=== PATIENT | male | born 1980 | race Caucasian/White ===

== ENCOUNTER 2025-08-20 12:36 | Inpatient (IN) | payer MEDICAID, SELFPAY ==
[2025-08-20 12:37] VITALS: BP 136/89; PULSE 75; RESP 16; TEMP 36.7; O2SAT 98; BMI 30.1
--- NOTE | 2025-08-20 12:56 | EX.ED.SAOD ---
HPI History of Present Illness Chief Complaint: Substance Abuse Informant: patient Onset/Context/Timing Onset: Yesterday Context: Gradual Onset Timing: Continuous Worsened by: Nothing Relieved by: Nothing Associated Symptoms Associated Symptoms: Positive for palpatations; Negative for vomiting*, diarrhea*, fever*, rash*, seizure, tremor, change in mental status, suicidal ideation or homicidal ideation Narrative Narrative: Patient presents requesting detox from alcohol and methamphetamine. Patient states he drinks 14-15 beers per day. Patient states his last drink was yesterday. Patient states his last detox was 3 to 4 years ago. Patient also admits to using methamphetamines. Patient admits to occasional palpitations. Patient denies any nausea or vomiting. Patient denies any fevers or chills. Patient denies any suicidal homicidal ideations. Patient states he does have a history of schizophrenia and does hear voices. [facility] Medical History (Updated 08/20/25 @ 14:[address] Navneet Underwood DO) Schizoaffective disorder, bipolar type Home Medications ?Medication ?Instructions ?Recorded ?Last Taken ?Type hydroxyzine pamoate 25 mg capsule 50 mg PO Q8H PRN anxiety 08/20/25 08/18/25 History risperidone 125 mg/0.35 mL 125 mg subcut QMONTH mood 08/20/25 07/01/25 History subcutaneous extend release susp syringe (Uzedy) Allergy/AdvReac Type Severity Reaction Status Date / Time No Known Allergies Allergy Verified 08/20/25 12:40 Surgical History (Updated 08/20/25 @ 14:[address] Navneet Underwood DO) Hx of arthroscopy of right knee Social History (Updated 08/20/25 @ 14:[address] Navneet Underwood DO) Smoking Status: Heavy Smoker (>10/day) alcohol intake: current alcohol intake frequency: 3 or more drinks per day Alcohol type: beer substance use type: methamphetamine ROS ROS ED Constitutional Constitutional ED: Reports chills; Denies fever(s) Eyes Eyes: Denies blurry vision or change in vision ENT ENT ED: Denies rhinorrhea or sore throat Cardiovascular Cardiovascular: Reports palpitations; Denies chest pain Respiratory/Chest Respiratory/Chest: Denies cough or dyspnea Gastrointestinal Gastrointestinal: Denies nausea or vomiting Genitourinary Genitourinary ED: Denies dysuria or hematuria Musculoskeletal Musculoskeletal: Denies back pain or neck pain Integumentary Denies abscess or rash Neurologic Neurologic: Denies headache(s) or weakness Allergic/Immunologic Allergic/Immunologic ED: Denies mouth swelling or urticaria EXAM Physical Exam Const Vital Signs: 08/20/25 12:37 Temperature 98.1 F Temperature Source Temporal Pulse Rate 75 Respiratory Rate 16 Blood Pressure 136/89 H Blood Pressure Mean 104 Pulse Ox 98 Oxygen Delivery Method Room Air Positive well nourished and well developed General Appearance ED: well developed and NAD HEENT Reports moist mucous membranes Neck supple and no JVD Resp normal respiratory effort and clear to auscultation bilaterally Cardio regular rate and regular rhythm GI soft to palpation, non-tender and non-distended Neuro oriented x3, CN's II-XII intact bilaterally and no sensory deficits noted [place] Coma Scale: document GCS findings Spontaneous Obeys Commands Oriented 15 Sensorium / Orientation: alert Speech: speech normal Motor Exam: strength 5/5 throughout Psych mental status grossly normal MDM MDM MDM Narrative Medical decision making narrative: Medical screening labs will be obtained. CBC will be obtained to assess for leukocytosis and anemia. Comprehensive metabolic profile will be obtained to assess for hepatic function, renal function, and electrolyte abnormality. Serum alcohol level will be obtained to assess for alcohol intoxication. Urine drug screen will be obtained to assess for substance abuse. Lab Data Attestation: I reviewed the patient's lab results. Lab results narrative: CBC was reviewed and was essentially within normal limits. Comprehensive metabolic profile was reviewed. AST was slightly elevated at 65 and ALT was slightly elevated at 82. Glucose was normal at 102. The remainder is within normal limits. Serum alcohol level was reviewed and was less than 10.1. Urine drug screen was reviewed and was positive for amphetamines. Management Discussion w/another healthcare provider: kitchen and counter worker/Case management Treatment and Re-Evaluation Narrative: Patient was given a nicotine patch. kitchen and counter worker visited to evaluate the patient. She stated the patient was hearing voices which were getting worse. However, these voices were not telling him to harm himself or anyone else. She offered the patient placement in a dual diagnosis facility. Patient states he would prefer to stay here and do detox first. Case was discussed with the hospitalist. Discharge Plan Triage Chief Complaint: Substance Abuse ED Provider: Navneet Underwood Dx/Rx/DC Orders Clinical Impression: Alcohol withdrawal, Substance abuse, Schizoaffective disorder, bipolar type Prescriptions: No Action Uzedy 125 mg/0.35 mL suspension,extended rel syring 125 mg SUBCUT QMONTH Patient Comments: [NO ORIGINAL SIG] hydroxyzine pamoate 25 mg capsule 50 mg PO Q8H PRN (Reason: anxiety) Primary Care Provider: Care Physician,No Primary Print Language: Georgian
[2025-08-20 13:20] LABS: Hematocrit 46.3 % (40-54); Hemoglobin 15.6 g/dL (13.0-16.5); Immature Granulocytes Count 0.010 X10^3/uL (0.0-0.0); Mean Corp Hgb Conc 33.7 g/dL (32-36); Mean Corpuscular Volume 93.2 fL (80-94); Mean Platelet Vol. 9.2 fl (6.2-12.0); NRBC Flagged by Analyzer 0 % (0-5); Platelet Count 245 K/mm3 (150-450); RBC Distribution Width CV 13.6 % (11.6-14.6); RBC Distribution Width SD 46.7 fl (35.1-43.9); Red Blood Count 4.97 M/mm3 (4.6-6.2); White Blood Count 4.9 K/mm3 (4.4-11.0)
[2025-08-20] MEDS: Nicotine (PBKC) 21 MG Patch TD ×2 (13:24→15:44)
[2025-08-20 13:37] VITALS: BP 160/97; PULSE 69; RESP 14; O2SAT 98
[2025-08-20 13:40] LABS: AST(SGOT) 65 U/L (<=37); Alanine Aminotransfer ALT/SGPT 82 U/L (<=46); Albumin, Serum 4.5 g/dL (3.5-5.0); Alcohol, Blood (Medical)-Serum < 10.1 mg/dL (<=10.0); Alkaline Phosphatase 73 U/L (40-129); Anion Gap 11 (5-15); BUN 16 mg/dL (4-19); BUN/Creat Ratio 16.7 RATIO (10-20); Calcium,Total 9.1 mg/dL (7.6-11.0); Carbon Dioxide 24.2 mmol/L (21.0-32.0); Chloride 102 mmol/L (98-108); Estimated Creatinine Clearance 116.17 ml/min (50-250); Globulin 3.3 g/dL (2.2-4.2); Glucose 102 mg/dL (70-99); Potassium 4.3 mmol/L (3.3-5.1)
[2025-08-20 13:41] LABS: Barbiturate Urine NEGATIVE (< 200 ng/mL); Benzodiazepine Urine NEGATIVE (< 200 ng/mL); PCP Urine NEGATIVE (< 25 ng/mL); THC Urine NEGATIVE (< 50 ng/mL)
[2025-08-20 14:00] VITALS: BP 148/95; PULSE 77; RESP 16; O2SAT 97
--- NOTE | 2025-08-20 14:12 | HP.PCM.HOS_ITS ---
HPI - General General Date of Admission: 08/20/25 Date of Service: 08/20/25 Chief Complaint: EtOH detoxification HPI Narrative The patient is a 44 y/o M w/ PMHx: Schizoaffective disorder/bipolar type, Tobacco use, Polysubstance abuse (probably methamphetamine, snorting 1/2 g daily to every other day with last use 2 days prior), EtOH abuse who presents to the [facility] on 08/20/25 w/ noted acute EtOH withdrawal, although currently mild he onset starting on day of presentation following last EtOH intake the day prior typically drinking 12-30 beers a day with onset mild nausea, mild increased fatigue and restlessness and reporting also onset of mild tremors. Patient interested in attaining sober status. He denies having ever went through detox before. He does report methamphetamine abuse for approximately 10 years and alcohol use for approximately 20 to 25 years. Patient does report compliance with his schizoaffective medication and notes that he is due on the upcoming 31 August. He does report hearing voices however there is no homicidal or suicidal instructions. Workup in the ED included T98.1, heart rate 75, BP 136/89, respiratory 16, 98% on room air with most recent repeat heart rate 69, BP 160/97, respiratory rate 14, 98% on room air, CBC with WBC 4.9, globin 15.6, platelet 245 with lymphopenia, CMP with glucose 102, hepatic profile with AST/ALT 65/82, UDS with presumptive positive amphetamine, ethyl alcohol less than 10.1. In the ED patient administered nicotine transdermal 21 mg patch x 1. PFSH Medical History Methamphetamine abuse Tobacco use Alcohol abuse Schizoaffective disorder, bipolar type Home Medications ?Medication ?Instructions ?Recorded ?Last Taken ?Type hydroxyzine pamoate 25 mg capsule 50 mg PO Q8H PRN anx iety 08/20/25 08/18/25 History risperidone 125 mg/0.35 mL 125 mg subcut QMONTH mood 1 10/20/24 07/01/25 History subcutaneous extend release susp syringe (Uzedy) Allergy/AdvReac Type Severity Reaction Status Date / Time No Known Allergies Allergy Verified 08/20/25 12:40 Family History (Updated 08/20/25 @ 15:[address] Neeta Murphy MD) Mother No problems noted. Father Schizophrenia Hypertension Surgical History Hx of arthroscopy of right knee Social History household members: none Smoking Status: Heavy Smoker (>10/day) alcohol intake: current alcohol intake frequency: 3 or more drinks per day Alcohol type: beer details: 12-30 beers/daily substance use type: methamphetamine ROS ROS Narrative Admission Review of Systems: CONSTITUTIONAL: No weight loss, fever, chills, + weakness or fatigue. HEENT: Eyes: No visual loss, blurred vision, double vision or yellow sclerae. Ears, Nose, Throat: No hearing loss, sneezing, congestion, runny nose or sore throat. SKIN: No rash or itching, lesions, wounds except + occasional stage ecchymoses, abrasions. CARDIOVASCULAR: No chest pain, chest pressure or chest discomfort, palpitations, edema, orthopnea, syncopal events. RESPIRATORY: No shortness of breath, cough or sputum, wheezing, hemoptysis. GASTROINTESTINAL: + anorexia, nausea. No vomiting or diarrhea, abdominal pain, melena, BRBPR. GENITOURINARY: No dysuria, frequency, urgency or retention. NEUROLOGICAL: + Mild tremors, tactile disturbance. No headache, dizziness, syncope, paralysis, ataxia, numbness or tingling in the extremities, focal weakness, change in bowel or bladder control, seizure. MUSCULOSKELETAL: + muscle, back pain, joint pain or stiffness. HEMATOLOGIC: No anemia, bleeding or bruising. LYMPHATICS: No enlarged nodes. No history of splenectomy. PSYCHIATRIC: + History of schizoaffective disorder/bipolar type. ENDOCRINOLOGIC: No reports of sweating, cold or heat intolerance. No polyuria or polydipsia. ALLERGIES: No history of asthma, hives, eczema or rhinitis. Vital Signs Vital Signs Vital Signs: 08/20/25 12:37 08/20/25 13:37 08/20/25 14:00 Temperature 98.1 F Temperature Source Temporal Pulse Rate 75 69 77 Respiratory Rate 16 14 16 Blood Pressure 136/89 H 160/97 H 148/95 H Blood Pressure Mean 104 118 112 Pulse Ox 98 98 97 Oxygen Delivery Method Room Air Room Air Weight Weight: 210 lb Body Mass Index (BMI) 30.1 Physical Exam Narrative Physical Examination: General: Awake, alert, oriented x 3 and cooperative, seated upright in the ED bed, soft-spoken, notes feeling fatigued, mildly restless, demonstrates his hands having mild tremor. Skin: Normal color, normal turgor, no icterus, no cyanosis except occasional stage ecchymoses, abrasion.. HEENT: AT/NC, EOMI, PERRLA, mildly dry MM, no carotid bruits or JVD noted. Lungs: CTA bilaterally, moderate effort, mild decrease BL bases, no rales, ronchi or wheezing. Heart: Regular rate and rhythm; no gallop, rub audible. Abdomen: Soft, NTTP, ND, normal BS, + mild HM appreciated. Extremities: No cyanosis, clubbing, or edema. Neurological: Patient awake, alert, oriented as noted, cognitive function intact; pupils equally reactive to light and accommodation, cranial nerves grossly normal, moving all 4 extremities, no focal deficits, strength mildly globally creased, mild onset of withdrawal symptoms with mild tremors in the hands, some reported tactile disturbances, mild restlessness per him as well as fatigue. Psychiatric: Affect appears flat, fatigued, no acute evidence of depressive or anxiety feelings but does have underlying psychiatric history. Results Lab / Micro Data 08/20/25 13:07 08/20/25 13:07 Labs: Laboratory Results - last 24 hr 08/20/25 13:07: WBC 4.9, RBC 4.97, Hgb 15.6, Hct 46.3, MCV 93.2, MCH 31.4, MCHC 33.7, RDW Std Deviation 46.7 H, RDW Coeff of Víctor 13.6, Plt Count 245, MPV 9.2, Immature Gran % (Auto) 0.200, Neut % (Auto) 71.4 H, Lymph % (Auto) 14.4 L, [place] % (Auto) 13.0 H, Eos % (Auto) 0.6, Baso % (Auto) 0.4, Absolute Neuts (auto) 3.5, Absolute Lymphs (auto) 0.70 L, Nucleated RBC % 0, Sodium 137, Potassium 4.3, Chloride 102, Carbon Dioxide 24.2, Anion Gap 11, BUN 16, Creatinine 0.94, Estim Creat Clear Calc 116.17, Est GFR (MDRD) Non-Af 103, BUN/Creatinine Ratio 16.7, G lucose 102 H, Calcium 9.1, Total Bilirubin 0.36, AST 65 H, ALT 82 H, Alkaline Phosphatase 73, Total Protein 7.7, Albumin 4.5, Globulin 3.3, Albumin/Globulin Ratio 1.4, Ethyl Alcohol < 10.1 08/20/25 13:12: Urine Opiates Screen NEGATIVE, U Buprenorphine Qual NEGATIVE, Ur Oxycodone Screen NEGATIVE, Urine Methadone Screen NEGATIVE, Urine Fentanyl Screen NEGATIVE, Ur Barbiturates Screen NEGATIVE, Ur Phencyclidine Scrn NEGATIVE, Ur Amphetamines Screen PRESUMPTIVE POSITIVE, U Benzodiazepines Scrn NEGATIVE, Urine Cocaine Screen NEGATIVE, U Cannabinoids Screen NEGATIVE Assessment & Plan Assessment/Plan (1) Alcohol withdrawal: PLAN: Plan The patient is a 44 y/o M w/ PMHx: Schizoaffective disorder/bipolar type, Tobacco use, Polysubstance abuse (probably methamphetamine, snorting 1/2 g daily to every other day with last use 2 days prior), EtOH abuse who presents to the [facility] on 08/20/25 w/ noted acute EtOH withdrawal, although currently mild he onset starting on day of presentation following last EtOH intake the day prior typically drinking 12-30 beers a day. #1. Acute EtOH Withdrawal: Will admit to MS, routine labs obtained in the ED upon presentation. Given interest in sobriety, will initiate and continue on protocol with taper course of Phenobarbital, as needed gabapentin, Catapres, Bentyl, Vistaril, IV fluids, IV antiemetics, Tylenol as needed for pain. Will consult Case management for assistance for transition to next level of rehabilitation care. Mag, phos pending. Maintain on CIWA protocol concurrently. #2. Elevated BP without hypertensive diagnosis: BP elevated above goal, potentially related with withdrawal as noted above, will continue monitor and add regimen if appropriate. #3. Polysubstance Abuse: Given polysubstance abuse although currently primarily reporting methamphetamine but risk of also alternate drugs will obtain HIV, syphilis, hepatitis panel be cautious. Encourage clean status. #4. Tobacco Abuse: Encouraged cessation, inpatient consultation per RT, NR if desired. #5. Schizoaffective disorder: Will continue patient home psychiatric regimen, likely greatly contributing to substance abuse, alcohol abuse, case management consulted as noted, would benefit from ongoing outpatient therapy and evaluation, medication changes/adjustments as needed. #6. DVT prophylaxis: Low risk for type presentation, encourage ambulation. Charges/Coding Visit Charges Inpatient E&M: 28424 Init Hosp L2
[2025-08-20 14:56] VITALS: BP 159/92; PULSE 101; RESP 16; TEMP 36.6; O2SAT 98
[2025-08-20 15:10] VITALS: BMI 30.1
[2025-08-20 15:28] VITALS: BP 155/105; PULSE 74; RESP 16; TEMP 36.5; O2SAT 100
[2025-08-20 15:30] LABS: HIV Nonreactive (Nonreactive); Magnesium 2.3 mg/dL (1.5-2.2); Syphilis Antibodies Nonreactive (Nonreactive)
[2025-08-20] MEDS: Lactated Ringers 1,000 ML 125 ML IV (15:43)
--- NOTE | 2025-08-20 15:43 | CM.ED ---
Addendum entered by Rylie Chavez 08/20/25 16:10: Social Work Treatment navigator notified of patients admission to [facility] for detox and updated on mental health diagnosis and symptoms. SILVIANO Means, PELT DROPPER Original Note: Social Work SW was notified by triage nurse that patients chi spoke to nurse on the way out of the ER to make sure staff knew that patient was actively hearing voices. Patient gave permission for SW to contact nialex. Niece states that she is concerned that patients mental health is declining, that he destroyed his trailer two days ago, and that he was outside walking at her parents house for hours during . SW spoke with patient who states he came to the ED for detox because he has been drinking and using meth for over a decade and wants to stop. Patient also stated that he is currently hearing voices and he feels the voices have gotten worse. When asked if patient felt the voices were worse because of patients alcohol intake, patient states that he drinks to drown out the voices but it has not been working. Patient states he has heard voices for 10 -15 years, that he is currently receiving mental health treatment and is getting monthly injections that he is compliant with. Patient denies any suicidal or homicidal ideations and voices no delusional statements. Patient states he has been hospitalized in the past for mental health. SW offered patient treatment for both alcohol detox and mental health, patient declined stating he wanted to get sober first and then work on his mental health. Nialex was updated on conversation with patient. Niece states that she is a therapist and understands that we cannot force mental health hospitalization at this time, but wanted hospital staff to know about patients recent behaviors should his mental health decline during detox. SILVIANO Means, PELT DROPPER
--- NOTE | 2025-08-20 16:24 | CASEMGMT ---
Social Work- SW received updated from ED SW. SW updated charge nurse and bedside nurse. SW remains available to follow. AFSANEH Nunez
[2025-08-20 17:37] LABS: Hepatitis B Surface Antigen Nonreactive (Nonreactive); Hepatitis C Antibody Nonreactive (Nonreactive)
--- NOTE | 2025-08-20 18:42 | ADDICTION ---
Pt was met with to complete RAMP assessment, AUDIT, DUDIT, ASAM, MSE, and DC Plan. Pt states that he is unsure if he is willing to enter a residential or inpatient facility but he is open to considering it as he is worried his psychotic sxs are not well controlled on current medication. Pt was encouraged to consider psychiatric dual dx stabilization. Cl was provided psychoeducation on JAMILAH and MH comorbidity, disease process, and relapse risk. Pt was provided info and resources for various tx options. Pt states that his mh is his primary concern. [facility] has evaluated pt and pt has agreed to think about entering dual dx inpatient tx after detox. At minimum, pt states he will f/u with outpatient tx at home in [place].
[2025-08-20] MEDS: hydrOXYzine PAM 25 MG Capsule 50 MG PO (19:38)
[2025-08-20 19:44] VITALS: BP 157/99; PULSE 73; RESP 16; TEMP 36.4; O2SAT 98
[2025-08-21 03:23] VITALS: BP 136/89; PULSE 100; RESP 16; TEMP 37.2; O2SAT 97
[2025-08-21 07:54] VITALS: O2SAT 96
[2025-08-21 11:18] VITALS: BP 133/79; PULSE 79; RESP 16; TEMP 36.3; O2SAT 97
[2025-08-21] MEDS: Nicotine (PBKC) 21 MG Patch TD (11:27)
[2025-08-21] MEDS: Thiamine Hydrochloride 100 MG Tablet PO (11:27)
--- NOTE | 2025-08-21 13:33 | CASEMGMT ---
Social Work SW did speak w/pt navigator Moni regarding pt's mental health. Moni was actually here yesterday and was aware. She will follow up w/pt again tomorrow. LALO San
[2025-08-21 15:25] VITALS: BP 133/79; PULSE 79; RESP 16; TEMP 36.3; O2SAT 97
--- NOTE | 2025-08-21 17:42 | PN.HOSP_ITS ---
Reason for Visit Chief Complaint: EtOH detoxification Subjective Subjective Patient resting in bed, wakes up and is cooperative, no acute complaints Objective Data Objective Data Vital Signs: Vital Signs Temp Pulse Resp BP Pulse Ox O2 Del Method 97.4 F L 79 16 133/79 H 97 Room Air 08/21/25 15:25 08/21/25 15:25 08/21/25 15:25 08/21/25 15:25 08/21/25 15:25 08/21/25 15:25 Oxygen Delivery Method Room Air Weight: 95.254 kg Body Mass Index (BMI) 30.1 Intake & Output: Intake and Output for Last 24 Hours 08/19/25 08/20/25 08/21/25 23:59 23:59 23:59 Intake Total 512.5 / 512.5 Balance 512.5 / 512.5 Lab / Micro Data 08/20/25 13:07 08/20/25 13:07 Physical Exam Narrative General: Tired but wakes up and answers questions appropriately HEENT: Atraumatic, normocephalic Eyes: extraocular movements grossly intact Neck: Supple Respiratory: normal respiratory effort Cardiovascular: no edema appreciated GI: nondistended Extremities: Moving all extremities Neuro: No overt focal neurological deficits Psych: Cooperative Assessment & Plan Assessment/Plan (1) Alcohol withdrawal: PLAN: Plan The patient is a 44 y/o M w/ PMHx: Schizoaffective disorder/bipolar type, Tobacco use, Polysubstance abuse (probably methamphetamine, snorting 1/2 g daily to every other day with last use 2 days prior), EtOH abuse who presents to the [facility] on 08/20/25 w/ noted acute EtOH withdrawal, although currently mild he onset starting on day of presentation following last EtOH intake the day prior typically drinking 12-30 beers a day. #Acute EtOH Withdrawal: Will admit to MS, routine labs obtained in the ED upon presentation. Given interest in sobriety, will initiate and continue on protocol with taper course of Phenobarbital, as needed gabapentin, Catapres, Bentyl, Vistaril, IV fluids, IV antiemetics, Tylenol as needed for pain. Will consult Case management for assistance for transition to next level of rehabilitation care. Mag, phos pending. Maintain on CIWA protocol concurrently. -08/21: Presently tolerating taper, continue present medications. Pleasant and cooperative #Schizoaffective disorder: Will continue patient home psychiatric regimen, likely greatly contributing to substance abuse, alcohol abuse, case management consulted as noted, would benefit from ongoing outpatient therapy and evaluation, medication changes/adjustments as needed. -08/21: Continue home medications and supportive care, will need outpatient follow-up, presently not reporting any SI/HI Chronic medical problems: # Polysubstance Abuse: Given polysubstance abuse although currently primarily reporting methamphetamine but risk of also alternate drugs will obtain HIV, syphilis, hepatitis panel be cautious. Encourage clean status. #Tobacco Abuse: Encouraged cessation, inpatient consultation per RT, NR if desired. DVT prophylaxis: Low risk for type presentation, encourage ambulation. Charges/Coding Visit Charges Inpatient E&M: 38695 Subs Hosp L1
[2025-08-21 18:33] VITALS: BP 117/58; PULSE 82; RESP 16; TEMP 36.5; O2SAT 94
[2025-08-21 20:15] VITALS: BP 108/54; PULSE 82; RESP 16; TEMP 36.9; O2SAT 97
[2025-08-21] MEDS: hydrOXYzine PAM 25 MG Capsule 50 MG PO (20:54)
[2025-08-22 04:03] VITALS: BP 105/65; PULSE 69; RESP 14; TEMP 36.4; O2SAT 97
[2025-08-22] MEDS: Thiamine Hydrochloride 100 MG Tablet PO (07:14)
[2025-08-22] MEDS: Nicotine (PBKC) 21 MG Patch TD (09:02)
[2025-08-22 09:07] VITALS: BP 111/64; PULSE 73; RESP 16; TEMP 36.6; O2SAT 95
--- NOTE | 2025-08-22 09:38 | PCM.PN.HOSP ---
Reason for Visit Chief Complaint: EtOH detoxification Subjective Subjective Sitting up in bed, eating breakfast in no acute distress Objective Data Objective Data Vital Signs: Vital Signs Temp Pulse Resp BP Pulse Ox O2 Del Method 97.9 F 73 16 111/64 95 Room Air 08/22/25 09:07 08/22/25 09:07 08/22/25 09:07 08/22/25 09:07 08/22/25 09:07 08/22/25 09:07 Oxygen Delivery Method Room Air Weight: 95.254 kg Body Mass Index (BMI) 30.1 Intake & Output: Intake and Output for Last 24 Hours 08/20/25 08/21/25 08/22/25 23:59 23:59 23:59 Intake Total 512.5 / 512.5 Balance 512.5 / 512.5 Lab / Micro Data 08/20/25 13:07 08/20/25 13:07 Physical Exam Narrative General: Alert, oriented, no apparent distress HEENT: Atraumatic, normocephalic Eyes: extraocular movements grossly intact Neck: Supple Respiratory: normal respiratory effort Cardiovascular: no edema appreciated GI: nondistended Extremities: Moving all extremities Neuro: No overt focal neurological deficits Psych: Cooperative Assessment & Plan Assessment/Plan (1) Alcohol withdrawal: PLAN: Plan The patient is a 44 y/o M w/ PMHx: Schizoaffective disorder/bipolar type, Tobacco use, Polysubstance abuse (probably methamphetamine, snorting 1/2 g daily to every other day with last use 2 days prior), EtOH abuse who presents to the [facility] on 08/20/25 w/ noted acute EtOH withdrawal, although currently mild he onset starting on day of presentation following last EtOH intake the day prior typically drinking 12-30 beers a day. #Acute EtOH Withdrawal: Will admit to MS, routine labs obtained in the ED upon presentation. Given interest in sobriety, will initiate and continue on protocol with taper course of Phenobarbital, as needed gabapentin, Catapres, Bentyl, Vistaril, IV fluids, IV antiemetics, Tylenol as needed for pain. Will consult Case management for assistance for transition to next level of rehabilitation care. Mag, phos pending. Maintain on CIWA protocol concurrently. -08/21: Presently tolerating taper, continue present medications. Pleasant and cooperative -08/22: Feeling better today, less tired, tolerating medications, no new or acute complaints. Continue taper #Schizoaffective disorder: Will continue patient home psychiatric regimen, likely greatly contributing to substance abuse, alcohol abuse, case management consulted as noted, would benefit from ongoing outpatient therapy and evaluation, medication changes/adjustments as needed. -08/21: Continue home medications and supportive care, will need outpatient follow-up, presently not reporting any SI/HI -08/22: Reports voices are minimal today and seem to be better. No SI or HI Chronic medical problems: # Polysubstance Abuse: Given polysubstance abuse although currently primarily reporting methamphetamine but risk of also alternate drugs will obtain HIV, syphilis, hepatitis panel be cautious. Encourage clean status. #Tobacco Abuse: Encouraged cessation, inpatient consultation per RT, NR if desired. DVT prophylaxis: Low risk for type presentation, encourage ambulation. Charges/Coding Visit Charges Inpatient E&M: 53642 Subs Hosp L1
--- NOTE | 2025-08-22 12:54 | NURSING ---
Up dated pt's niece at getting ok from pt. She will be picking pt up and would also like to talk with Clay from [employer]. She would like pt to go inpt at [facility] in [facility], they deal with both substance abuse and mental health- it is a 90 day program . Pt sees a Dr at [facility].
[2025-08-22 13:30] VITALS: BP 123/65; PULSE 65; RESP 14; TEMP 36.6; O2SAT 95
[2025-08-22 15:38] VITALS: BP 126/83; PULSE 79; RESP 16; TEMP 36.4; O2SAT 94
[2025-08-22 18:38] VITALS: BP 123/76; PULSE 83; RESP 16; TEMP 36.6; O2SAT 95
[2025-08-22 20:15] VITALS: BP 136/97; PULSE 80; RESP 16; TEMP 36.4; O2SAT 96
[2025-08-22] MEDS: hydrOXYzine PAM 25 MG Capsule 50 MG PO (20:49)
[2025-08-23 06:06] VITALS: BP 124/78; PULSE 68; RESP 16; TEMP 36.4; O2SAT 97
[2025-08-23 08:10] VITALS: BP 105/71; PULSE 70; RESP 16; TEMP 36.5; O2SAT 99
[2025-08-23] MEDS: Thiamine Hydrochloride 100 MG Tablet PO (08:19)
[2025-08-23] MEDS: Nicotine (PBKC) 21 MG Patch TD (08:19)
--- NOTE | 2025-08-23 11:19 | ADDICTION ---
This residential mortgage underwriter met with the patient to discuss discharge planning. The patient acknowledged the need for inpatient treatment due to repeated relapses, co-occurring mental health concerns, and the severity of alcohol and methamphetamine use. He stated that he would need to speak with his family before making a decision. This residential mortgage underwriter informed the patient that contact was made with his designated family member, who confirmed that the family is supportive of him entering and completing inpatient treatment. He agreed to go. Clinician contacted Radha from [facility] and the plan is to get him placed today. [facility] will arrange transportation if approved.
--- NOTE | 2025-08-23 13:17 | PCM.DC.SUM ---
Providers Date of Admission: 08/20/25 Date of Discharge: 08/23/25 Primary Care Physician: [facility] Reason For Visit: ETOH DETOX Diagnosis Discharge Diagnosis (1) Alcohol withdrawal: Status: Acute Code(s): F10.939 - Alcohol use, unspecified with withdrawal, unspecified Medications at Discharge Home Medications hydroxyzine pamoate 25 mg capsule 50 mg PO Q8H PRN anxiety 08/20/25 risperidone 125 mg/0.35 mL subcutaneous extend release susp syringe (Uzedy) 125 mg subcut QMONTH mood 08/20/25 Hospital Course Operations None Procedures None Summary of Care Provided Minutes Spent on Discharge: 30 Hospital Course: Mr. Ruiz is a 44-year-old white male who presented emergency department [facility] on 08/12/2025 requesting alcohol detoxification. He has a history of meth use as well and snorted 2 days prior. He drinks 12-30 beers daily and on presentation he had some mild nausea fatigue and restlessness with some mild tremors. Patient has never gone through detox before and has been utilizing methamphetamines for about 10 years as well. He has been using alcohol for 20 to 25 years. He also has a history of schizoaffective disorder and bipolar and has reportedly been quite compliant with medications. Vital signs on presentation were overtly unremarkable. CBC was unremarkable. Chemistry panel showed mild alcoholic hepatitis with an AST of 65 and ALT of 82 and his urine drug screen was positive for amphetamines and alcohol was less than 10. He was admitted to [facility] and placed on a phenobarbital taper, thiamine, and folate as well as supportive medications for assistance with symptom control. He was seen by 180 for assistance with discharge planning and initially was planning on going home but ultimately has decided to go to a residential treatment program for ongoing management. [facility] and transportation was arranged on 08/23/2025 and patient was discharged in stable condition. I would recommend he find a primary care physician and follow-up after he gets out of the residential treatment program. He also should have ongoing psychiatric care for his schizoaffective disorder. Discharge diagnoses: Acute alcohol withdrawal Mild alcoholic hepatitis Elevated blood pressure secondary alcohol withdrawal Schizoaffective disorder Polysubstance abuse Tobacco abuse Physical Exam Const alert, oriented x3, no apparent distress, no limitations, healthy appearing and well nourished; Negative for average body habitus Constitutional Narrative: Obese, middle-aged, white male, sitting up in bed, appears comfortable, nontoxic, no tremor, appears well at this time General Appearance: cooperative, comfortable, well kempt and well developed Exam Limitations: no limitations Nutritional Appearance: obese HEENT normocephalic, head/scalp atraumatic, hearing grossly normal bilaterally and moist oral mucous membranes Resp normal respiratory effort, no retractions, no use of accessory muscles and clear to auscultation bilaterally Auscultation: Negative for crackles, rhonchi or wheezes Cardio regular rate, regular rhythm, S1 normal heart sound, S2 normal heart sound, no murmurs, no rub, no gallops and no clicks GI normal to inspection, nondistended, normoactive bowel sounds, soft to palpation and non-tender Extremity no clubbing, cyanosis or edema Extremity Narrative: 2+ pedal and radial pulses Neuro moves all extremities and no focal motor deficits Speech: speech normal Psych affect normal Psych Narrative: Pleasant, interacts appropriately, eye contact is good Weight / BMI Weight Weight: 95.254 kg Body Mass Index (BMI) 30.1 ABG / Lab / Microbiology Data 08/20/25 13:07 08/20/25 13:07 D/C Instructions Discharge Activity: Return to Normal Activity DC O2, CPAP, BIPAP Needs Home O2 Discharge instructions: No Meaningful Use Info Meaningful Use Meaningful Use Diagnoses (Choose all that apply): None applicable Discharge Plan Admission Admit Date/Time: 08/20/25 14:34 Primary Reason for Your Visit: Alcohol detox Attending Provider: Cynthia Wakefield Primary Care Provider: Care Physician,No Primary Consulting Providers: Neeta Murphy; Maeve Yang Discharge Orders/Prescriptions Prescriptions: Continued Uzedy 125 mg/0.35 mL suspension,extended rel syring 125 mg SUBCUT QMONTH Patient Comments: [NO ORIGINAL SIG] hydroxyzine pamoate 25 mg capsule 50 mg PO Q8H PRN (Reason: anxiety) Referrals / Follow Up: Care Physician,No Primary [Primary Care Provider, Medical] Disposition Disposition (needs filled in before D/C Order can be placed): Inpatient Rehab Unit/Facility Charges/Coding Visit Charges Inpatient E&M: [id number] Disch Hosp
--- NOTE | 2025-08-23 13:25 | PHA.DC.MR.R ---
[facility] [place] Med Reconciliation Pharmacy Service has performed discharge medication reconciliation for this patient. The patient's discharge medication list was reviewed for discrepancies and discrepancies were resolved. Medications at Discharge Home Medications hydroxyzine pamoate 25 mg capsule 50 mg PO Q8H PRN anxiety 08/20/25 risperidone 125 mg/0.35 mL subcutaneous extend release susp syringe (Uzedy) 125 mg subcut QMONTH mood 08/20/25
== END 2025-08-23 14:16 | DRG 775 ==
LOC: ED 13:25 → MS3 14:57
PROVIDERS: Admitting Provider Family Medicine; Emergency Provider Emergency Medicine; Visit Provider Internal Medicine
DX: F10.239 Alcohol dependence with withdrawal, unspecified (principal); F25.9 Schizoaffective disorder, unspecified; K70.10 Alcoholic hepatitis without ascites; F19.19 Other psychoactive substance abuse with unspecified psychoactive substance-induced disorder; F17.210 Nicotine dependence, cigarettes, uncomplicated; Z81.8 Family history of other mental and behavioral disorders; R03.0 Elevated blood-pressure reading, without diagnosis of hypertension; Y90.0 Blood alcohol level of less than 20 mg/100 ml
CPT/HCPCS: 80053; 80307; 82077; 83735; 84100; 85025; 86703; 86706; 86780; 86803; 87340; 97802; 99285; 99406